=== PATIENT | male | born 1990 | race Caucasian/White ===

== ENCOUNTER 2018-08-12 12:33 | Emergency (ER) | payer MEDICAID ==
[~2018-08-12] VITALS: Ht 165.1 cm; Wt 100.0 kg
[2018-08-12] MEDS ORDERED: IBUPROFEN 800MG TABLET PO ONE (13:45)
[2018-08-12 14:38] VITALS: BP 129/69
== END 2018-08-12 15:33 | disposition home or self-care (01) ==
LOC: ER 12:33
DX: S93.491A Sprain of other ligament of right ankle, initial encounter (principal); F17.200 Nicotine dependence, unspecified, uncomplicated; X50.1XXA Overexertion from prolonged static or awkward postures, initial encounter; Y93.89 Activity, other specified; Y92.89 Other specified places as the place of occurrence of the external cause; Y99.8 Other external cause status; Z98.890 Other specified postprocedural states
CPT/HCPCS: 73610; 99284

== ENCOUNTER 2018-12-23 13:01 | Emergency (ER) | payer SELFPAY ==
[~2018-12-23] VITALS: Ht 162.6 cm; Wt 102.0 kg
[2018-12-23] MEDS ORDERED: IBUPROFEN 600MG TABLET PO ONE (17:15)
[2018-12-23 18:09] VITALS: BP 165/60
== END 2018-12-23 18:10 | disposition home or self-care (01) ==
LOC: ER 13:33
DX: S62.306D Unspecified fracture of fifth metacarpal bone, right hand, subsequent encounter for fracture with routine healing (principal); J45.909 Unspecified asthma, uncomplicated; X58.XXXD Exposure to other specified factors, subsequent encounter
CPT/HCPCS: 29125; 73130; 99283